=== PATIENT | female | born 1990 | race Caucasian/White ===

== ENCOUNTER → 2017-03-01 | Outpatient (CLI) | payer OTHER ==
[2017-03-01 06:23] LABS: THYROID STIMULATING HORMONE 2.54 UIU/ML (0.35-4.94)
== END ==
LOC: LAB 05:22
PROVIDERS: ATTEND Surgery
DX: E04.1 Nontoxic single thyroid nodule (principal)
CPT/HCPCS: 36415; 84439; 84443; 84480

== ENCOUNTER → 2017-03-14 | Outpatient (CLI) | payer OTHER ==
[~2017-03-14] VITALS: Ht 165.1 cm; Wt 102.1 kg
[~2017-03-14] MED LIST: LIDOCAINE 1% INJ 20 ML (XYLOCAINE) VIAL INJ ONE
[2017-03-14 14:10] VITALS: BP 138/90
[2017-03-14 14:45] VITALS: BP 128/71
--- NOTE | 2017-03-14 17:26 | Diagnostic Imaging Report ---
EXAMINATION: US-guided thyroid aspiration. INDICATION: Predominantly cystic left thyroid lesions. Current history and physical and other medical records are reviewed prior to the procedure. CONSENT: Informed consent was obtained from the patient. The risks, benefits, potential complications and alternatives were reviewed and all questions answered to the patient's satisfaction. The patient's vital signs, cardiac rhythm, and pulse oximetry with observed throughout the procedure by qualified nursing personnel. Sedation/medications: none. FINDINGS: Left thyroid predominantly cystic lesions. PROCEDURE: After maximal sterile barrier technique preparation and draping, 1% lidocaine was utilized for local anesthesia. With the patient in supine position, and via anterior approach, a 19-gauge guide needle is introduced into the mid left thyroid cystic lesion under live ultrasound guidance. After confirming adequate positioning with saved ultrasound images, aspiration was performed and 1 cc specimen of fluid sent to cytology evaluation. Subsequently, the needle was repositioned into the upper left thyroid predominantly cystic nodule and aspiration was performed. 0.5 cc of fluid was obtained and sent for cytology evaluation. The patient tolerated the procedure well with no immediate complications. IMPRESSION: Successful US-guided aspiration of 2 left thyroid lobe predominantly cystic lesions in the mid and upper left thyroid lobe. Dictated by: Dictated on workstation # [id number]
== END ==
LOC: EDUNIT# 13:00 → RAD 13:00
PROVIDERS: ATTEND Surgery
DX: E04.1 Nontoxic single thyroid nodule (principal)
CPT/HCPCS: 76942; 88112; 88305

== ENCOUNTER → 2018-04-04 | Outpatient (CLI) | payer OTHER ==
[2018-04-04 05:11] LABS: HEMOGLOBIN 13.8 G/DL (11.5-16.0); MEAN PLATELET VOLUME 9.7 FL (7.4-10.4); RED BLOOD COUNT 4.45 10^6/uL (4.35-5.85); RED CELL DISTRIBUTION WIDTH 12.2 % (10.0-14.5); WHITE BLOOD COUNT 10.2 10^3/uL (4.3-11.0)
== END ==
LOC: LAB 04:38
PROVIDERS: ATTEND Surgery
DX: E04.1 Nontoxic single thyroid nodule (principal); R53.83 Other fatigue
CPT/HCPCS: 36415; 84436; 84443; 85027

== ENCOUNTER 2018-04-15 14:15 | Outpatient (CLI) | payer OTHER ==
[~2018-04-15] VITALS: Ht 162.6 cm; Wt 88.5 kg
[2018-04-15] MEDS ORDERED: OMEP20CA12 PO (14:41)
[2018-04-15] MEDS ORDERED: NORG1TAB33 PO (14:41)
[2018-04-15] MEDS ORDERED: PREG50CA2 PO (14:41)
[2018-04-15] MEDS ORDERED: calcium PO (14:41)
[2018-04-15] MEDS ORDERED: CHOL200059 PO (14:41)
== END 2018-04-15 14:45 | disposition home or self-care (01) ==
LOC: PREOP 14:15
PROVIDERS: ATTEND Surgery
DX: Z01.818 Encounter for other preprocedural examination (principal)

== ENCOUNTER 2018-04-19 08:56 | Day surgery (SDC) | payer OTHER ==
[~2018-04-19] VITALS: Ht 162.6 cm; Wt 88.5 kg
[~2018-04-19 08:56] MED LIST changes: +CHOL200059 PO; -LIDOCAINE 1% INJ 20 ML (XYLOCAINE) VIAL INJ ONE; +NORG1TAB33 PO; +OMEP20CA12 PO; +PREG50CA2 PO; +calcium PO
[2018-04-19 09:00] VITALS: BP 134/80
--- OUTSIDE RECORDS SUMMARY | 2018-04-19 09:01 | XMS REPORT | CCD ---
Author Author [facility] Address [address] [place] [address] Phone Care Team Providers Care Air Surveillance Operator Name Role Phone PP Unavailable CCM Unavailable Summary Purpose Interface Exchange Insurance Providers Payer name Policy type / Coverage type Covered libertarian ID Effective Begin Date Effective End Date Blue Cross Blue [facility] Blue Cross/Blue Shield [id number] Unknown Unknown Family history Grandmother Diagnosis Age At Onset Cancer Unknown Father Diagnosis Age At Onset Diabetes mellitus Type 2 Unknown Great-Grandmother Diagnosis Age At Onset Breast cancer Unknown Mother Diagnosis Age At Onset Depression Unknown Social History Social History Element Codes Description Effective Dates Marital status Unknown 09/12/2016 Number of adults in household Unknown 2 09/12/2016 Education level Unknown College Graduate 09/12/2016 Employment Unknown Currently employed RT at [employer] 09/12/[address]: 931472511 Never smoker 09/12/[address]: 403161 Currently drinks alcohol 1 drink a week 09/12/2016 Frequency of drinks SNOMED CT: 376942374 1-4 drinks per week 09/12/2016 Has the patient ever used illegal drugs? Unknown Has never used illegal drugs 09/12/2016 Allergies, Adverse Reactions, Alerts Substance Reaction Codes Entered Date Inactivated Date Status amoxicillin emesis RxNorm: 723 09/12/2016 No Inactive Date Active SULFA (SULFONAMIDE ANTIBIOTICS) Unknown 09/12/2016 No Inactive Date Active SULFA (SULFONAMIDES) Unknown 09/12/2016 No Inactive Date Active Past Medical History Illness Codes Condition Status Onset Date Resolved Date Other obesity due to excess calories ICD-9: 278.00 ICD-10: E66.09 Active 09/12/2016 Unknown Other specified disorders of thyroid ICD-9: 246.8 ICD-10: E07.89 Active 02/21/2017 Unknown Encounter for surveillance of contraceptive pills ICD-9: V25.41 ICD-10: Z30.41 Active 05/17/2017 Unknown Gastro-esophageal reflux disease without esophagitis ICD-9: 530.81 ICD-10: K21.9 Active 05/17/2017 Unknown Other dorsalgia ICD-9 : 724.5 ICD-10: M54.89 Active 11/21/2016 Unknown Abnormal findings on diagnostic imaging of other specified body structures ICD-9: 794.5 ICD-10: R93.8 Active 02/21/2017 Unknown Acute laryngopharyngitis ICD-9: 465.0 ICD-10: J06.0 Active 09/12/2016 Unknown Hirsutism ICD-9: 704.1 ICD-10: L68.0 Active 09/12/2016 Unknown Irregular menstruation, unspecified ICD-9: 626.2 ICD-10: N92.6 Active 09/12/2016 Unknown Problems Condition Codes Effective Dates Condition Status Other obesity due to excess calories ICD-9: 278.00 ICD-10: E66.09 09/12/2016 Active Other specified disorders of thyroid ICD-9: 246.8 ICD-10: E07.89 02/21/2017 Active Encounter for surveillance of contraceptive pills ICD-9: V25.41 ICD-10: Z30.41 05/17/2017 Active Gastro-esophageal reflux disease without esophagitis ICD-9: 530.81 ICD-10: K21.9 05/17/2017 Active Other dorsalgia ICD-9 : 724.5 ICD-10: M54.89 11/21/2016 Active Abnormal findings on diagnostic imaging of other specified body structures ICD-9: 794.5 ICD-10: R93.8 02/21/2017 Active Acute laryngopharyngitis ICD-9: 465.0 ICD-10: J06.0 09/12/2016 Active Hirsutism ICD-9: 704.1 ICD-10: L68.0 09/12/2016 Active Irregular menstruation, unspecified ICD-9: 626.2 ICD-10: N92.6 09/12/2016 Active Medications Medication Codes Instructions Start Date Stop Date Status Fill Instructions Lyrica 50 mg capsule RxNorm: 279672 1 Capsule(s) PO daily 02/1405/14/2018 Active omeprazole 20 mg capsule,delayed release RxNorm: 062698 1 CAPSULE(S) PO DAILY 01/28/2018 05/27/2018 Active phentermine 37.5 mg tablet RxNorm: 250397 1 Tablet(s) PO daily 01/15/2018 02/13/2018 Inactive Lyrica 50 mg capsule RxNorm: 533545 1 Capsule(s) PO daily 11/0101/28/2018 Inactive phentermine 37.5 mg tablet RxNorm: 759071 1 Tablet(s) PO daily 11/01/2017 11/30/2017 Inactive Lo Loestrin Fe 1 mg-10 mcg (24)/10 mcg (2) tablet RxNorm: 6514777 1 TABLET(S) PO UD 10/01/2017 No Stop Date Active phentermine 37.5 mg tablet RxNorm: 474069 1 Tablet(s) PO daily 09/25/2017 10/23/2017 Inactive Lo Loestrin Fe 1 mg-10 mcg (24)/10 mcg (2) tablet RxNorm: 4413056 1 TABLET(S) PO UD 08/27/2017 09/30/2017 Inactive phentermine 37.5 mg tablet RxNorm: 267591 1 Tablet(s) PO daily 07/26/2017 08/23/2017 Inactive Lo Loestrin Fe 1 mg-10 mcg (24)/10 mcg (2) tablet RxNorm: 7903879 1 Tablet(s) PO UD 06/14/2017 03/10/2018 Active omeprazole 20 mg capsule,delayed release RxNorm: 635280 1 Capsule(s) PO daily 06/14/2017 03/10/2018 Active phentermine 37.5 mg tablet RxNorm: 233414 1 Tablet(s) PO daily 06/14/2017 07/13/2017 Inactive Lyrica 50 mg capsule RxNorm: 577899 1 Capsule(s) PO daily 06/1410/31/2017 Inactive Lo Loestrin Fe 1 mg-10 mcg (24)/10 mcg (2) tablet RxNorm: 5777512 1 Tablet(s) PO UD 05/17/2017 06/13/2017 Inactive phentermine 37.5 mg tablet RxNorm: 503025 1 Tablet(s) PO daily 05/17/2017 06/13/2017 Inactive Lyrica 50 mg capsule RxNorm: 844815 1 Capsule(s) PO daily 05/1706/13/2017 Inactive omeprazole 20 mg capsule,delayed release RxNorm: 979983 1 Capsule(s) PO daily 05/17/2017 06/13/2017 Inactive Contrave 8 mg-90 mg tablet,extended release RxNorm: 3677053 1 Tablet(s) PO QD x 1 week, then BID x 1 week, then 2 pills QAM & 1 pill QPM x 1 week, then 2 pills BID 10/24/2016 05/27/2017 Inactive Lutera (28) 0.1 mg-20 mcg tablet RxNorm: 787669 1 Tablet(s) PO daily 09/12/2016 10/09/2016 Inactive Zithromax Z-Brennan 250 mg tablet RxNorm: 623590 1 Tablet(s) PO daily 09/12/2016 09/16/2016 Inactive zpack Medication Administered No Medication Administered data Immunizations No Immunization data Assessments Condition Codes Effective Dates Other specified disorders of thyroid ICD-10: E07.89 ICD-9: 246.8 01/15/2018 Other obesity due to excess calories ICD-10: E66.09 ICD-9: 278.00 01/15/2018 Gastro-esophageal reflux disease without esophagitis ICD-10 : K21.9 ICD-9: 530.81 06/14/2017 Encounter for surveillance of contraceptive pills ICD-10: Z30.41 ICD-9: V25.41 06/14/2017 Other dorsalgia ICD-10: M54.89 ICD-9: 724.5 05/17/2017 Abnormal findings on diagnostic imaging of other specified body structures ICD-10: R93.8 ICD-9: 794.5 02/21/2017 Irregular menstruation, unspecified ICD-10: N92.6 ICD-9: 626.2 09/12/2016 Acute laryngopharyngitis ICD-10: J06.0 ICD-9: 465.0 09/12/2016 Hirsutism ICD-10: L68.0 ICD-9: 704.1 09/12/2016 Reason For Visit Reason For Visit Effective Dates Notes weight gain/obesity 01/15/2018 weight gain/obesity 11/15/2017 weight gain/obesity 06/14/2017 medication follow up 05/17/2017 thyroid nodule 02/21/2017 medication follow up 11/21/2016 weight gain/obesity 10/24/2016 weight gain/obesity 09/12/2016 Results Observation Observation Code Item Item Code Result Date Prolactin 829216 PROLACTIN 17.0 ng/mL 09/20/2016 Lipid Ord30 CHOL 198 mg/dL 09/20/2016 Lipid Ord30 HDL 41.0 mg/dl 09/20/2016 Lipid Ord30 TRIG 96 mg/dL 09/20/2016 Lipid Ord30 LDL 138 mg/dL 09/20/2016 Lipid Ord30 C/HDL 4.8 Ratio 09/20/2016 Comp Metabolic Ydp486 NA 137 mEq/L 09/20/2016 Comp Metabolic Mhu560 K 4.4 mEq/L 09/20/2016 Comp Metabolic Nbo806 CL 104 mEq/L 09/20/2016 Comp Metabolic Xry269 CO2 23.0 mEq/L 09/20/2016 Comp Metabolic Tja658 ANION GAP 14 09/20/2016 Comp Metabolic Mew392 GLUCOSE 89 mg/dL 09/20/2016 Comp Metabolic Zyv291 Creat 0.8 mg/dL 09/20/2016 Comp Metabolic Xqj021 eGFR 89 ml/min/1.73m2 09/20/2016 Comp Metabolic Txa610 BUN 14 mg/dL 09/20/2016 Comp Metabolic Hpy661 B/C Ratio 17.1 Ratio 09/20/2016 Comp Metabolic Nxu090 CALCIUM 9.4 mg/dL 09/20/2016 Comp Metabolic Cow487 ALK PHOS 47 U/L 09/20/2016 Comp Metabolic Snd575 AST(SGOT) 18 U/L 09/20/2016 Comp Metabolic Ugb429 ALT(SGPT) 21 U/L 09/20/2016 Comp Metabolic Jow955 BILI T 0.5 mg/dL 09/20/2016 Comp Metabolic Sgz333 ALBUMIN 4.2 g/dL 09/20/2016 Comp Metabolic Jnw668 TPRO 7.0 g/dL 09/20/2016 Comp Metabolic Wrd159 GLOB 2.8 g/dL 09/20/2016 Comp Metabolic Ckg284 A/G Ratio 1.5 Ratio 09/20/2016 Comp Metabolic Cap626 Osmo 274 mOsmo 09/20/2016 Fsh Ord18 FSH 5.67 mlU/ml 09/20/2016 Lh Ord19 LH 7.49 mIU/mL 09/20/2016 Progesterone Fjf941 Prog 0.73 ng/mL 09/19/2016 Cbc With Differential Ord2 WBC 6.17 K/ul 09/19/2016 Cbc With Differential Ord2 RBC 4.84 M/ul 09/19/2016 Cbc With Differential Ord2 HGB 15.1 g/dl 09/19/2016 Cbc With Differential Ord2 HCT 44.3 % 09/19/2016 Cbc With Differential Ord2 Neut% 43.8 % 09/19/2016 Cbc With Differential Ord2 Lymph% 45.4 % 09/19/2016 Cbc With Differential Ord2 MCV 91.5 fl 09/19/2016 Cbc With Differential Ord2 [place]% 9.4 % 09/19/2016 Cbc With Differential Ord2 MCH 31.2 pg 09/19/2016 Cbc With Differential Ord2 Eos% 1.1 % 09/19/2016 Cbc With Differential Ord2 MCHC 34.1 pg 09/19/2016 Cbc With Differential Ord2 Baso% 0.3 % 09/19/2016 Cbc With Differential Ord2 PLT 333 K/ul 09/19/2016 Cbc With Differential Ord2 RDW 12.6 % 09/19/2016 Cbc With Differential Ord2 Neut ABS# 2.70 K/ul 09/19/2016 Cbc With Differential Ord2 Lymph ABS# 2.80 K/ul 09/19/2016 Cbc With Differential Ord2 [place] ABS# 0.6 K/ul 09/19/2016 Cbc With Differential Ord2 Eos ABS# 0.1 K/ul 09/19/2016 Cbc With Differential Ord2 Baso ABS# 0.0 K/ul 09/19/2016 Tsh Ord6 hTSH II 0.92 uIU/mL 09/19/2016 Review of Systems System Result Effective Dates Constitutional No recent illness 2017 Constitutional No chills 01/15/2018 Constitutional No diaphoresis 01/15/2018 Constitutional No fever 01/15/2018 Eyes No eye erythema 01/15/2018 Ears/Nose/Throat/Neck No nasal allergies 01/15/2018 Ears/Nose/Throat/Neck No nasal discharge 01/15/2018 Cardiovascular No chest pain/pressure Cardiovascular No dyspnea 01/15/2018 Respiratory No chest congestion 2017 Respiratory No cough 01/15/2018 Gastrointestinal No abdominal pain 2017 Gastrointestinal No constipation 2017 Gastrointestinal No diarrhea 01/15/2018 Gastrointestinal No gastroesophageal reflux 01/15/2018 Gastrointestinal No nausea 01/15/2018 Gastrointestinal No vomiting 01/15/2018 Musculoskeletal back pain 01/15/2018 Dermatologic No rash 01/15/2018 Neurologic No alteration of consciousness 01/15/2018 Neurologic No mental status change 2017 Constitutional No recent illness 2017 Constitutional No chills 11/15/2017 Constitutional No diaphoresis 11/15/2017 Constitutional No fever 11/15/2017 Eyes No eye erythema 11/15/2017 Ears/Nose/Throat/Neck No nasal allergies 11/15/2017 Ears/Nose/Throat/Neck No nasal discharge 11/15/2017 Cardiovascular No chest pain/pressure Cardiovascular No dyspnea 11/15/2017 Respiratory No chest congestion 2017 Respiratory No cough 11/15/2017 Gastrointestinal No abdominal pain 2017 Gastrointestinal No constipation 2017 Gastrointestinal No diarrhea 11/15/2017 Gastrointestinal No gastroesophageal reflux 11/15/2017 Gastrointestinal No nausea 11/15/2017 Gastrointestinal No vomiting 11/15/2017 Musculoskeletal back pain 11/15/2017 Dermatologic No rash 11/15/2017 Neurologic No alteration of consciousness 11/15/2017 Neurologic No mental status change 2017 Constitutional No recent illness 2016 Constitutional No chills 06/14/2017 Constitutional No diaphoresis 06/14/2017 Constitutional No fever 06/14/2017 Eyes No eye erythema 06/14/2017 Ears/Nose/Throat/Neck No nasal discharge 06/14/2017 Ears/Nose/Throat/Neck No nasal allergies 06/14/2017 Cardiovascular No chest pain/pressure Cardiovascular No dyspnea 06/14/2017 Respiratory No cough 06/14/2017 Respiratory No chest congestion 2016 Gastrointestinal No abdominal pain 2016 Gastrointestinal No constipation 2016 Gastrointestinal No diarrhea 06/14/2017 Gastrointestinal No gastroesophageal reflux 06/14/2017 Gastrointestinal No nausea 06/14/2017 Gastrointestinal No vomiting 06/14/2017 Musculoskeletal back pain 06/14/2017 Dermatologic No rash 06/14/2017 Neurologic No alteration of consciousness 06/14/2017 Neurologic No mental status change 2016 Constitutional No recent illness 2016 Constitutional obesity 05/17/2017 Constitutional weight gain 05/17/2017 Constitutional No chills 05/17/2017 Constitutional No diaphoresis 05/17/2017 Constitutional No fever 05/17/2017 Eyes No eye erythema 05/17/2017 Eyes No eye discharge 05/17/2017 Eyes No eye erythema 05/17/2017 Ears/Nose/Throat/Neck No nasal allergies 05/17/2017 Ears/Nose/Throat/Neck No nasal discharge 05/17/2017 Cardiovascular No chest pain/pressure Respiratory No cough 05/17/2017 Respiratory No dyspnea 05/17/2017 Gastrointestinal No abdominal pain 2016 Musculoskeletal back pain 05/17/2017 Dermatologic No rash 05/17/2017 Neurologic No alteration of consciousness 05/17/2017 Neurologic No mental status change 2016 Constitutional No recent illness 2016 Constitutional No chills 02/21/2017 Constitutional No diaphoresis 02/21/2017 Constitutional No fever 02/21/2017 Eyes No eye erythema 02/21/2017 Ears/Nose/Throat/Neck No nasal discharge 02/21/2017 Ears/Nose/Throat/Neck No dysphagia 2016 Cardiovascular No chest pain/pressure Cardiovascular No dyspnea 02/21/2017 Respiratory No cough 02/21/2017 Musculoskeletal neck pain 02/21/2017 Neurologic No alteration of consciousness 02/21/2017 Neurologic No mental status change 2016 Endocrine thyroid nodule 02/21/2017 Constitutional No recent illness 2016 Constitutional obesity 11/21/2016 Constitutional No chills 11/21/2016 Constitutional No diaphoresis 11/21/2016 Constitutional No fever 11/21/2016 Eyes No eye erythema 11/21/2016 Ears/Nose/Throat/Neck No nasal allergies 11/21/2016 Ears/Nose/Throat/Neck No nasal discharge 11/21/2016 Cardiovascular No chest pain/pressure Respiratory No cough 11/21/2016 Respiratory No dyspnea 11/21/2016 Musculoskeletal back pain 11/21/2016 Neurologic No alteration of consciousness 11/21/2016 Neurologic No mental status change 2016 Constitutional weight gain 11/21/2016 Eyes No eye discharge 11/21/2016 Eyes No eye erythema 11/21/2016 Gastrointestinal No abdominal pain 2016 Dermatologic No rash 11/21/2016 Constitutional No recent illness 2016 Constitutional No chills 10/24/2016 Constitutional No diaphoresis 10/24/2016 Constitutional No fever 10/24/2016 Eyes No eye discharge 10/24/2016 Eyes No eye erythema 10/24/2016 Cardiovascular No chest pain/pressure Cardiovascular No dyspnea 10/24/2016 Respiratory No cough 10/24/2016 Gastrointestinal No abdominal pain 2016 Musculoskeletal back pain 10/24/2016 Dermatologic No rash 10/24/2016 Neurologic No alteration of consciousness 10/24/2016 Constitutional weight gain 10/24/2016 Constitutional obesity 10/24/2016 Ears/Nose/Throat/Neck No nasal discharge 10/24/2016 Ears/Nose/Throat/Neck No nasal allergies 10/24/2016 Respiratory No dyspnea 10/24/2016 Neurologic No mental status change 2016 Constitutional No recent illness 2016 Constitutional No anorexia 09/12/2016 Constitutional No night sweats 2016 Constitutional No chills 09/12/2016 Constitutional No diaphoresis 09/12/2016 Constitutional No fatigue 09/12/2016 Constitutional No fever 09/12/2016 Constitutional No insomnia 09/12/2016 Constitutional No weight loss 09/12/2016 Constitutional No malaise 09/12/2016 Constitutional weight gain 09/12/2016 Eyes No eye erythema 09/12/2016 Eyes No eye discharge 09/12/2016 Ears/Nose/Throat/Neck No dizziness 2016 Ears/Nose/Throat/Neck headache 2016 Cardiovascular No chest pain/pressure Cardiovascular No dyspnea 09/12/2016 Cardiovascular No edema 09/12/2016 Respiratory No cough 09/12/2016 Gastrointestinal No abdominal pain 2016 Gastrointestinal No constipation 2016 Gastrointestinal diarrhea 09/12/2016 Genitourinary/Nephrology No dysuria 09/12 Musculoskeletal No joint complaint 2016 Dermatologic No rash 09/12/2016 Neurologic No alteration of consciousness 09/12/2016 Psychiatric No anxiety 09/12/2016 Psychiatric No depression 09/12/2016 Endocrine No dry or coarse skin 2016 Hematologic/Lymphatic No anemia 2016 Musculoskeletal back pain 09/12/2016 Physical Exam Exam Name System Name Item Name Status Result Effective Dates Notes Full Exam - General 1994 Constitutional general appearance Overall: well developed 01/15/2018 None Full Exam - General 1994 Constitutional general appearance Overall: in no acute distress 01/15/2018 None Full Exam - General 1994 Constitutional general appearance Overall: well nourished 01/15/2018 None Full Exam - General 1994 Eyes conjunctiva /eyelids Overall: conjunctiva clear 01/15/2018 None Full Exam - General 1994 Eyes conjunctiva /eyelids Overall: cornea clear 01/15/2018 None Full Exam - General 1994 Eyes conjunctiva /eyelids Overall: eyelids normal 01/15/2018 None Full Exam - General 1995 Ears/Nose/Throat lips/teeth/gingiva Overall: benign lips 01/15/2018 None Full Exam - General 1994 Ears/Nose/Throat oral cavity/pharynx/larynx Overall: oral mucosa clear 01/15/2018 None Full Exam - General 1994 Respiratory auscultation Overall: breath sounds clear bilaterally 01/15/2018 None Full Exam - General 1994 Respiratory respiratory effort/rhythm Overall: no retractions 01/15/2018 None Full Exam - General 1994 Respiratory respiratory effort/rhythm Overall: normal rate 01/15/2018 None Full Exam - General 1994 Cardiovascular auscultation of heart Overall: regular rate 01/15/2018 None Full Exam - General 1994 Cardiovascular auscultation of heart Overall: normal heart sounds 01/15/2018 None Full Exam - General 1994 Musculoskeletal head and neck Overall: head atraumatic 01/15/2018 None Full Exam - General 1994 Neurologic cranial nerves Overall: crainial nerves 2 - 12 grossly intact 01/15/2018 None Full Exam - General 1994 Psychiatric orientation/consciousness Overall: oriented to person, place and time 01/15/2018 None Full Exam - General 1994 Psychiatric mood and affect Overall: normal mood and affect 01/15/2018 None Full Exam - General 1994 Psychiatric appearance Overall: well-groomed, good eye contact 01/15/2018 None Full Exam - General 1994 Neck thyroid Palpation: tender 2017 None Full Exam - General 1994 Constitutional general appearance Overall: well developed 11/15/2017 None Full Exam - General 1994 Constitutional general appearance Overall: in no acute distress 11/15/2017 None Full Exam - General 1994 Constitutional general appearance Overall: well nourished 11/15/2017 None Full Exam - General 1994 Eyes conjunctiva /eyelids Overall: conjunctiva clear 11/15/2017 None Full Exam - General 1994 Eyes conjunctiva /eyelids Overall: cornea clear 11/15/2017 None Full Exam - General 1994 Eyes conjunctiva /eyelids Overall: eyelids normal 11/15/2017 None Full Exam - General 1994 Ears/Nose/Throat lips/teeth/gingiva Overall: benign lips 11/15/2017 None Full Exam - General 1994 Ears/Nose/Throat oral cavity/pharynx/larynx Overall: oral mucosa clear 11/15/2017 None Full Exam - General 1994 Respiratory auscultation Overall: breath sounds clear bilaterally 11/15/2017 None Full Exam - General 1994 Respiratory respiratory effort/rhythm Overall: no retractions 11/15/2017 None Full Exam - General 1994 Respiratory respiratory effort/rhythm Overall: normal rate 11/15/2017 None Full Exam - General 1994 Cardiovascular auscultation of heart Overall: regular rate 11/15/2017 None Full Exam - General 1994 Cardiovascular auscultation of heart Overall: normal heart sounds 11/15/2017 None Full Exam - General 1994 Musculoskeletal head and neck Overall: head atraumatic 11/15/2017 None Full Exam - General 1994 Neurologic cranial nerves Overall: crainial nerves 2 - 12 grossly intact 11/15/2017 None Full Exam - General 1994 Psychiatric orientation/consciousness Overall: oriented to person, place and time 11/15/2017 None Full Exam - General 1994 Psychiatric mood and affect Overall: normal mood and affect 11/15/2017 None Full Exam - General 1994 Psychiatric appearance Overall: well-groomed, good eye contact 11/15/2017 None Full Exam - General 1994 Constitutional general appearance Overall: well developed 06/14/2017 None Full Exam - General 1994 Constitutional general appearance Overall: in no acute distress 06/14/2017 None Full Exam - General 1994 Constitutional general appearance Overall: well nourished 06/14/2017 None Full Exam - General 1994 Eyes conjunctiva /eyelids Overall: conjunctiva clear 06/14/2017 None Full Exam - General 1994 Eyes conjunctiva /eyelids Overall: cornea clear 06/14/2017 None Full Exam - General 1994 Eyes conjunctiva /eyelids Overall: eyelids normal 06/14/2017 None Full Exam - General 1994 Ears/Nose/Throat lips/teeth/gingiva Overall: benign lips 06/14/2017 None Full Exam - General 1994 Ears/Nose/Throat oral cavity/pharynx/larynx Overall: oral mucosa clear 06/14/2017 None Full Exam - General 1994 Respiratory auscultation Overall: breath sounds clear bilaterally 06/14/2017 None Full Exam - General 1994 Respiratory respiratory effort/rhythm Overall: normal rate 06/14/2017 None Full Exam - General 1994 Respiratory respiratory effort/rhythm Overall: no retractions 06/14/2017 None Full Exam - General 1994 Cardiovascular auscultation of heart Overall: normal heart sounds 06/14/2017 None Full Exam - General 1994 Cardiovascular auscultation of heart Overall: regular rate 06/14/2017 None Full Exam - General 1994 Musculoskeletal head and neck Overall: head atraumatic 06/14/2017 None Full Exam - General 1994 Neurologic cranial nerves Overall: crainial nerves 2 - 12 grossly intact 06/14/2017 None Full Exam - General 1994 Psychiatric orientation/consciousness Overall: oriented to person, place and time 06/14/2017 None Full Exam - General 1994 Psychiatric mood and affect Overall: normal mood and affect 06/14/2017 None Full Exam - General 1994 Psychiatric appearance Overall: well-groomed, good eye contact 06/14/2017 None Full Exam - General 1994 Constitutional general appearance Overall: well developed 05/17/2017 None Full Exam - General 1994 Constitutional general appearance Overall: in no acute distress 05/17/2017 None Full Exam - General 1994 Constitutional general appearance Overall: well nourished 05/17/2017 None Full Exam - General 1994 Eyes conjunctiva /eyelids Overall: conjunctiva clear 05/17/2017 None Full Exam - General 1994 Eyes conjunctiva /eyelids Overall: eyelids normal 05/17/2017 None Full Exam - General 1994 Ears/Nose/Throat lips/teeth/gingiva Overall: benign lips 05/17/2017 None Full Exam - General 1994 Ears/Nose/Throat oral cavity/pharynx/larynx Overall: oral mucosa clear 05/17/2017 None Full Exam - General 1994 Respiratory auscultation Overall: breath sounds clear bilaterally 05/17/2017 None Full Exam - General 1994 Respiratory respiratory effort/rhythm Overall: no retractions 05/17/2017 None Full Exam - General 1994 Respiratory respiratory effort/rhythm Overall: normal rate 05/17/2017 None Full Exam - General 1994 Cardiovascular auscultation of heart Overall: regular rate 05/17/2017 None Full Exam - General 1994 Cardiovascular auscultation of heart Overall: normal heart sounds 05/17/2017 None Full Exam - General 1994 Musculoskeletal spine, ribs and pelvis Spine: tender @ thoracic spine 05/17/2017 None Full Exam - General 1994 Musculoskeletal gait and station Overall: normal gait 05/17/2017 None Full Exam - General 1994 Musculoskeletal gait and station Overall: normal station 05/17/2017 None Full Exam - General 1994 Musculoskeletal head and neck Overall: head atraumatic 05/17/2017 None Full Exam - General 1994 Neurologic cranial nerves Overall: crainial nerves 2 - 12 grossly intact 05/17/2017 None Full Exam - General 1994 Psychiatric orientation/consciousness Overall: oriented to person, place and time 05/17/2017 None Full Exam - General 1994 Psychiatric mood and affect Overall: normal mood and affect 05/17/2017 None Full Exam - General 1994 Psychiatric appearance Overall: well-groomed, good eye contact 05/17/2017 None Full Exam - General 1994 Eyes conjunctiva /eyelids Overall: cornea clear 05/17/2017 None Full Exam - General 1994 Constitutional general appearance Nourishment: obese 05/17/2017 None Full Exam - ENT Constitutional general appearance Overall: well nourished 02/21/2017 None Full Exam - ENT Constitutional general appearance Overall: well developed 02/21/2017 None Full Exam - ENT Constitutional general appearance Overall: in no acute distress 02/21/2017 None Full Exam - ENT Ears/Nose/Throat lips/ teeth/gingiva Overall: benign lips 02/21/2017 None Full Exam - ENT Ears/Nose/Throat oropharynx Overall: oral mucosa clear 02/21/2017 None Full Exam - ENT Neck inspection of neck Overall: normal appearance 02/21/2017 None Full Exam - ENT Neck inspection of thyroid Palpation: tender 02/21/2017 None Full Exam - ENT Respiratory inspection Overall: normal rate None Full Exam - ENT Respiratory inspection Overall: no retractions 02/21/2017 None Full Exam - ENT Musculoskeletal head and neck Overall: head atraumatic 02/21/2017 None Full Exam - ENT Musculoskeletal gait and station Overall: normal gait 02/21/2017 None Full Exam - ENT Musculoskeletal gait and station Overall: normal station 02/21/2017 None Full Exam - ENT Neurologic mood and affect Overall: normal affect 02/21/2017 None Full Exam - ENT Neurologic mood and affect Overall: normal mood 02/21/2017 None Full Exam - ENT Neurologic orientation Overall: oriented to person, place and time 02/21/2017 None Full Exam - General 1994 Constitutional general appearance Overall: well developed 11/21/2016 None Full Exam - General 1994 Constitutional general appearance Overall: in no acute distress 11/21/2016 None Full Exam - General 1994 Constitutional general appearance Overall: well nourished 11/21/2016 None Full Exam - General 1994 Eyes conjunctiva /eyelids Overall: conjunctiva clear 11/21/2016 None Full Exam - General 1994 Eyes conjunctiva /eyelids Overall: eyelids normal 11/21/2016 None Full Exam - General 1994 Ears/Nose/Throat lips/teeth/gingiva Overall: benign lips 11/21/2016 None Full Exam - General 1994 Ears/Nose/Throat oral cavity/pharynx/larynx Overall: oral mucosa clear 11/21/2016 None Full Exam - General 1994 Respiratory auscultation Overall: breath sounds clear bilaterally 11/21/2016 None Full Exam - General 1994 Respiratory respiratory effort/rhythm Overall: no retractions 11/21/2016 None Full Exam - General 1994 Respiratory respiratory effort/rhythm Overall: normal rate 11/21/2016 None Full Exam - General 1994 Cardiovascular auscultation of heart Overall: regular rate 11/21/2016 None Full Exam - General 1994 Cardiovascular auscultation of heart Overall: normal heart sounds 11/21/2016 None Full Exam - General 1994 Musculoskeletal gait and station Overall: normal gait 11/21/2016 None Full Exam - General 1994 Musculoskeletal gait and station Overall: normal station 11/21/2016 None Full Exam - General 1994 Neurologic cranial nerves Overall: crainial nerves 2 - 12 grossly intact 11/21/2016 None Full Exam - General 1994 Psychiatric orientation/consciousness Overall: oriented to person, place and time 11/21/2016 None Full Exam - General 1994 Psychiatric mood and affect Overall: normal mood and affect 11/21/2016 None Full Exam - General 1994 Psychiatric appearance Overall: well-groomed, good eye contact 11/21/2016 None Full Exam - General 1994 Musculoskeletal spine, ribs and pelvis Spine: tender @ thoracic spine 11/21/2016 None Full Exam - General 1994 Musculoskeletal head and neck Overall: head atraumatic 11/21/2016 None Full Exam - General 1994 Constitutional general appearance Overall: well developed 10/24/2016 None Full Exam - General 1994 Constitutional general appearance Overall: in no acute distress 10/24/2016 None Full Exam - General 1994 Constitutional general appearance Overall: well nourished 10/24/2016 None Full Exam - General 1994 Eyes conjunctiva /eyelids Overall: conjunctiva clear 10/24/2016 None Full Exam - General 1994 Ears/Nose/Throat oral cavity/pharynx/larynx Overall: oral mucosa clear 10/24/2016 None Full Exam - General 1994 Respiratory auscultation Overall: breath sounds clear bilaterally 10/24/2016 None Full Exam - General 1994 Respiratory respiratory effort/rhythm Overall: no retractions 10/24/2016 None Full Exam - General 1994 Respiratory respiratory effort/rhythm Overall: normal rate 10/24/2016 None Full Exam - General 1994 Cardiovascular auscultation of heart Overall: regular rate 10/24/2016 None Full Exam - General 1994 Cardiovascular auscultation of heart Overall: normal heart sounds 10/24/2016 None Full Exam - General 1994 Musculoskeletal gait and station Overall: normal gait 10/24/2016 None Full Exam - General 1994 Musculoskeletal gait and station Overall: normal station 10/24/2016 None Full Exam - General 1994 Neurologic cranial nerves Overall: crainial nerves 2 - 12 grossly intact 10/24/2016 None Full Exam - General 1994 Psychiatric orientation/consciousness Overall: oriented to person, place and time 10/24/2016 None Full Exam - General 1994 Eyes conjunctiva /eyelids Overall: eyelids normal 10/24/2016 None Full Exam - General 1994 Ears/Nose/Throat lips/teeth/gingiva Overall: benign lips 10/24/2016 None Full Exam - General 1994 Psychiatric mood and affect Overall: normal mood and affect 10/24/2016 None Full Exam - General 1994 Psychiatric appearance Overall: well-groomed, good eye contact 10/24/2016 None Full Exam - General 1994 Constitutional general appearance Overall: well developed 09/12/2016 None Full Exam - General 1994 Constitutional general appearance Overall: in no acute distress 09/12/2016 None Full Exam - General 1994 Constitutional general appearance Overall: well nourished 09/12/2016 None Full Exam - General 1994 Psychiatric orientation/consciousness Overall: oriented to person, place and time 09/12/2016 None Full Exam - General 1994 Neurologic cranial nerves Overall: crainial nerves 2 - 12 grossly intact 09/12/2016 None Full Exam - General 1994 Integument inspection of skin Overall: few scattered moles, no gross abnormalities 09/12/2016 None Full Exam - General 1994 Musculoskeletal gait and station Overall: normal gait 09/12/2016 None Full Exam - General 1994 Musculoskeletal gait and station Overall: normal station 09/12/2016 None Full Exam - General 1994 Abdomen abdominal exam Overall: no tenderness 09/12/2016 None Full Exam - General 1994 Abdomen abdominal exam Overall: normal bowel sounds 09/12/2016 None Full Exam - General 1994 Cardiovascular auscultation of heart Overall: regular rate 09/12/2016 None Full Exam - General 1994 Cardiovascular auscultation of heart Overall: normal heart sounds 09/12/2016 None Full Exam - General 1994 Cardiovascular auscultation of heart Overall: no murmurs 09/12/2016 None Full Exam - General 1994 Respiratory auscultation Overall: breath sounds clear bilaterally 09/12/2016 None Full Exam - General 1994 Respiratory respiratory effort/rhythm Overall: normal rate 09/12/2016 None Full Exam - General 1994 Respiratory respiratory effort/rhythm Overall: no retractions 09/12/2016 None Full Exam - General 1994 Ears/Nose/Throat otoscopic exam Overall: tympanic membranes clear 09/12/2016 None Full Exam - General 1994 Ears/Nose/Throat otoscopic exam Overall: external auditory canals clear 09/12/2016 None Full Exam - General 1994 Ears/Nose/Throat oral cavity/pharynx/larynx Overall: oral mucosa clear 09/12/2016 None Full Exam - General 1994 Eyes conjunctiva /eyelids Overall: conjunctiva clear 09/12/2016 None Full Exam - General 1994 Eyes pupils and irises Overall: pupils equal, round, reactive to light and accomodation 09/12/2016 None Full Exam - General 1994 Ears/Nose/Throat oral cavity/pharynx/larynx Posterior Pharynx: clear post nasal drainage 09/12/2016 erythematous Procedures No Procedures data Vital Signs Date Vital 01/15/2018 Blood Pressure 1: 120/76 Code : 8480-6 BMI: 33.3 Code : 24143-1 Heart Rate 1 : 96 bpm Height: 5'4" SpO2: 98% Weight: 194 lbs 11/15/2017 Blood Pressure 1: 126/70 Code : 8480-6 BMI: 33.6 Code : 46030-4 Heart Rate 1 : 93 bpm Height: 5'4" SpO2: 99% Weight: 196 lbs 11/01/2017 Blood Pressure 1: 102/74 Code : 8480-6 BMI: 33.8 Code : 04584-9 Heart Rate 1 : 90 bpm Height: 5'4" SpO2: 98% Weight: 197 lbs 09/25/2017 Blood Pressure 1: 122/72 Code : 8480-6 BMI: 35.0 Code : 59141-1 Heart Rate 1 : 93 bpm Height: 5'4" SpO2: 98% Weight: 204 lbs 07/26/2017 Blood Pressure 1: 116/78 Code : 8480-6 Heart Rate 1: 99 bpm SpO2: 98% Weight: 208 lbs 06/14/2017 Blood Pressure 1: 110/68 Code : 8480-6 Heart Rate 1: 90 bpm SpO2: 97% Weight: 217 lbs 05/17/2017 Blood Pressure 1: 128/72 Code : 8480-6 BMI: 38.4 Code : 85943-2 Heart Rate 1 : 78 bpm Height: 5'4" SpO2: 98% Weight: 224 lbs 02/21/2017 Blood Pressure 1: 126/74 Code : 8480-6 BMI: 38.3 Code : 95031-1 Heart Rate 1 : 99 bpm Height: 5'4" SpO2: 97% Weight: 223 lbs 11/21/2016 Blood Pressure 1: 110/64 Code : 8480-6 BMI: 39.0 Code : 14413-1 Heart Rate 1 : 85 bpm Height: 5'4" SpO2: 98% Weight: 227 lbs 10/24/2016 Blood Pressure 1: 114/72 Code : 8480-6 BMI: 39.1 Code : 41283-1 Heart Rate 1 : 78 bpm Height: 5'4" SpO2: 98% Weight: 228 lbs 09/12/2016 Blood Pressure 1: 132/78 Code : 8480-6 BMI: 39.3 Code : 55214-2 Heart Rate 1 : 90 bpm Height: 5'4" SpO2: 98% Weight: 229 lbs Functional Status No Functional Status data History of Present Illness Symptom Name Status Result Effective Date Notes weight gain/obesity Location globally 01/15/2018 None weight gain/obesity Quality chronic 01/15/2018 None weight gain/obesity Quality improving 01/15/2018 None weight gain/obesity Onset and Resolution ongoing 01/15/2018 None weight gain/obesity Pertinent Findings Denies dyspnea 01/15/2018 None weight gain/obesity Location globally 11/15/2017 None weight gain/obesity Quality chronic 11/15/2017 None weight gain/obesity Quality improving 11/15/2017 None weight gain/obesity Onset and Resolution ongoing 11/15/2017 None weight gain/obesity Pertinent Findings Denies dyspnea 11/15/2017 None weight gain/obesity Location globally 06/14/2017 None weight gain/obesity Quality chronic 06/14/2017 None weight gain/obesity Quality improving 06/14/2017 None weight gain/obesity Onset and Resolution ongoing 06/14/2017 None weight gain/obesity Pertinent Findings Denies dyspnea 06/14/2017 None medication follow up Location oral intake 05/17/2017 None medication follow up Additional Comments medication use 05/17/2017 None weight gain/obesity Location globally 05/17/2017 None weight gain/obesity Quality chronic 05/17/2017 None weight gain/obesity Quality worsening 05/17/2017 None weight gain/obesity Onset and Resolution ongoing 05/17/2017 None weight gain/obesity Pertinent Findings Denies dyspnea 05/17/2017 None thyroid nodule Location on the left 02/21/2017 None thyroid nodule Location on the right 02/21/2017 None thyroid nodule Quality cystic 02/21/2017 None thyroid nodule Pertinent Findings Denies dysphagia 02/21/2017 None thyroid nodule Pertinent Findings Denies change in voice 02/21/2017 None medication follow up Additional Comments medication use 11/21/2016 None medication follow up Location oral intake 11/21/2016 None weight gain/obesity Location globally 10/24/2016 None weight gain/obesity Quality constant 10/24/2016 None weight gain/obesity Onset and Resolution sudden in onset 10/24/2016 None weight gain/obesity Location globally 09/12/2016 None weight gain/obesity Quality chronic 09/12/2016 None weight gain/obesity Quality worsening 09/12/2016 None weight gain/obesity Onset and Resolution ongoing 09/12/2016 None weight gain/obesity Weight Status is morbidly obese 09/12/2016 None weight gain/obesity Triggers sedentary lifestyle 09/12/2016 None weight gain/obesity Triggers unintentional weight gain 09/12/2016 None Advance Directives No Advance Directive data Encounters Encounter Performer Location Codes Date EST. PATIENT, LEVEL IV Diagnosis: Other obesity due to excess calories[ICD10: E66.09] Diagnosis: Other specified disorders of thyroid[ICD10: E07.89] [facility] CPT-4: 11791 01/15/2018 22615 EST. PATIENT, LEVEL IV Diagnosis: Other obesity due to excess calories[ICD10: E66.09] [facility] CPT-4: 51189 11/15/2017 ([id number]) Miscellaneous no charge Diagnosis: Other obesity due to excess calories[ICD10: E66.09] [facility] CPT-4: 10968 11/01/2017 ([id number]) Miscellaneous no charge Diagnosis: Other obesity due to excess calories[ICD10: E66.09] Irma Zepeda MD, [facility] CPT-4: 10241 09/25/2017 ([id number]) Miscellaneous no charge Diagnosis: Other obesity due to excess calories[ICD10: E66.09] Irma Zepeda MD [facility] CPT-4: 93870 07/26/2017 84737 EST. PATIENT, LEVEL IV Diagnosis: Other obesity due to excess calories[ICD10: E66.09] Diagnosis: Encounter for surveillance of contraceptive pills[ICD10: Z30.41] Diagnosis: Gastro-esophageal reflux disease without esophagitis[ICD10: K21.9] Janell Zepeda MD, [facility] CPT-4: 40118 06/14/2017 82058 EST. PATIENT, LEVEL IV Diagnosis: Other obesity due to excess calories[ICD10: E66.09] Diagnosis: Other dorsalgia[ICD10: M54.89] Diagnosis: Encounter for surveillance of contraceptive pills[ICD10: Z30.41] Diagnosis: Gastro-esophageal reflux disease without esophagitis[ICD10: K21.9] Janell Zepeda MD, [facility] CPT-4: 88770 05/17/2017 29513 EST. PATIENT, LEVEL III Diagnosis: Other specified disorders of thyroid[ICD10: E07.89] Diagnosis: Abnormal findings on diagnostic imaging of other specified body structures[ICD10: R93.8] Janell Zepeda MD, [facility] CPT-4: 97736 02/21/2017 05180 EST. PATIENT, LEVEL III Diagnosis: Other obesity due to excess calories[ICD10: E66.09] Diagnosis: Other dorsalgia[ICD10: M54.89] [facility] CPT-4 : 32057 11/21/2016 30839 EST. PATIENT, LEVEL III Diagnosis: Other obesity due to excess calories[ICD10: E66.09] Janell Zepeda MD, [facility] CPT-4: 17046 10/24/2016 ([id number]) OFFICE VISIT, NEW - LEVEL 3 Diagnosis: Acute laryngopharyngitis[ICD10: J06.0] Diagnosis: Irregular menstruation, unspecified[ICD10: N92.6] Diagnosis: Hirsutism[ICD10: L68.0] Diagnosis: Other obesity due to excess calories[ICD10: E66.09] Thalia Zepeda MD, [facility] CPT-4: 73075 09/12/2016 Plan of Care Planned Activity Notes Codes Status Date Visit Plan: Obesity - chronic issue with this patient. The pt has been counseled about diet changes, calorie restriction, and need to exercise. Pt will RTC in one month for weight check. Thyroid nodule - tender - will order repeat US to monitor 01/15/2018 [facility] [phone] [facility] [place] ([facility] min[facility] Complex 01/15/2018 Patient Education: Patient Medication Summary Completed 01/15/2018 Care Plan: Tsh Cancelled 01/15/2018 Care Plan: Free T4 Cancelled 01/15/2018 Care Plan: BMI Above normal followup SELF-MGMT EDUC & TRAIN 1 PT Pending 2017 Visit Plan: Obesity - chronic issue with this patient. The pt has been counseled about diet changes, calorie restriction, and need to exercise. Pt will RTC in one month for weight check. Well Adult - pt was counseled about diet, exercise, and encouraged to follow a heart healthy diet and increase activity level. The patient was instructed to RTC yearly for well adult exams and PRN for acute illnesses. The pt was also instructed to have yearly labs for check of cholesterol, thyroid, chem panel, CBC, and renal functioning. 11/15/2017 Appointment: [facility] [phone] [facility] [place] (15 min) Moderate 11/15/2017 Patient Education: Patient Medication Summary Completed 11/15/2017 Patient Education: Obesity Completed 11/15/2017 Appointment: Nurse Visit 11/01/2017 Patient Education: Patient Medication Summary Completed 11/01/2017 Patient Education: Obesity Completed 11/01/2017 Appointment: Nurse Visit 09/25/2017 Patient Education: Patient Medication Summary Completed 09/25/2017 Appointment: Nurse Visit 07/26/2017 Patient Education: Patient Medication Summary Completed 07/26/2017 Visit Plan: Obesity - chronic issue with this patient. The pt has been counseled about diet changes, calorie restriction, and need to exercise. Pt will RTC in one month for weight check. Esophageal Reflux - the patient has been counseled against excessive intake of caffeine, spicy foods, peppermint, and cinnamon - all of which can exacerbate esophageal reflux. The patient is to take medications as prescribed and call the office if the symptoms are not improving. 06/14/2017 Appointment: Janell Pathak WPtel: [facility] (15 min) Moderate 06/14/2017 Patient Education: Patient Medication Summary Completed 06/14/2017 Patient Education: Obesity Completed 06/14/2017 Visit Plan: Esophageal Reflux - the patient has been counseled against excessive intake of caffeine, spicy foods, peppermint, and cinnamon - all of which can exacerbate esophageal reflux. The patient is to take medications as prescribed and call the office if the symptoms are not improving. Obesity - chronic issue with this patient. The pt has been counseled about diet changes, calorie restriction, and need to exercise. Pt will RTC in one month for weight check. Low back pain- the patient was instructed in appropriate posture, need for weight loss to alleviate abdominal obesity that is worsening the patient's back pain.. The pt is to use prn antiinflammatories to manage acute pain. The patient is to call the office if the pain is worsening or does not improve. control - will send RX - pt is to notify clinic with any changes, questions, or concern. 05/17/2017 Appointment: Janell Pathak WPtel: [address] [place], [place] [id number] (30 min) Complex 05/17/2017 Patient Education: Patient Medication Summary Completed 05/17/2017 Patient Education: Obesity Completed 05/17/2017 Referral: Sami Mena Consultation appointment 02/22/17 at 3PM - pt notified at her appointment on 02/21 Appointment Confirmed 02/22/2017 Visit Plan: Thyroid nodule/cysts - will refer to for biopsy per pt request - pt denies dysphagia, or voice change - pt is to notify clinic of plan/procedure after her appointment with Dr. Mena on 02/22/17 at 3 PM 02/21/2017 Appointment: Janell Pathak WPtel: [facility] (30 min) Complex 02/21/2017 Patient Education: Patient Medication Summary Completed 02/21/2017 Care Plan: Referral Order SNOMED-CT : [id number] Pending 02/21/2017 Referral: [place] [facility] WPtel: [address] [id number] Referral Initiated 11/30/2016 Visit Plan: Obesity - chronic issue with this patient. The pt has been counseled about diet changes, calorie restriction, and need to exercise. Pt will RTC in one month for weight check. Back pain - pt states that she had an x-ray showing scoliosis - pt states that she would like to get another opinion on her options to relieve her back pain. Will have pt sign a release of information to get x-ray report - will refer to ortho. 11/21/2016 Appointment: Janell Pathak WPtel: [address] [place], [place] [id number] (30 min) Complex 11/21/2016 Patient Education: Patient Medication Summary Completed 11/21/2016 Patient Education: Obesity Completed 11/21/2016 Care Plan: BMI Above normal followup SELF-MGMT EDUC & TRAIN 1 PT Pending 2016 Care Plan: Referral Order SNOMED-CT : [id number] Pending 11/21/2016 Appointment: Thalia Vidal WPtel: [phone] [place] (15 min) Moderate 10/26/2016 Care Plan: BMI Above normal followup SELF-MGMT EDUC & TRAIN 1 PT Pending 2016 Visit Plan: Obesity - chronic issue with this patient. The pt has been counseled about diet changes, calorie restriction, and need to exercise. Pt will RTC in one month for weight check. 10/24/2016 Appointment: Janell Pathak WPtel: [facility] (30 min) Complex 10/24/2016 Patient Education: Patient Medication Summary Completed 10/24/2016 Patient Education: Obesity Completed 10/24/2016 Visit Plan: Pharyngitis-Discussed natural and expected course of this diagnosis and need to alert me if symptoms do not follow expected course, or if any worse. Recommended salt water gargles as needed for pain. Tylenol/motrin as needed for fever/discomfort. Irregular periods-hirsutism -check labs-recommend patient follow up with operational assistant for possible PCOS Obesity- check labs-cut back on fast food-follow up in 1 month 09/12/2016 Appointment: VidalThalia WPtel: [phone] New Patient 09/12/2016 Patient Education: Patient Medication Summary Completed 09/12/2016 Patient Education: Obesity Completed 09/12/2016 Care Plan: [facility] Pending 09/12/2016 Care Plan: BMI Above normal followup SELF-MGMT EDUC & TRAIN 1 PT Pending 2016 Referral: [place] [facility] WPtel: [address] [id number] Referral Completed Referral: Sami Mena Referral Initiated Instructions Comment . Obesity - chronic issue with this patient. The pt has been counseled about diet changes, calorie restriction, and need to exercise. Pt will RTC in one month for weight check. Esophageal Reflux - the patient has been counseled against excessive intake of caffeine, spicy foods, peppermint, and cinnamon - all of which can exacerbate esophageal reflux. The patient is to take medications as prescribed and call the office if the symptoms are not improving. . Thyroid nodule/cysts - will refer to for biopsy per pt request - pt denies dysphagia, or voice change - pt is to notify clinic of plan/ procedure after her appointment with Dr. Mena on 02/22/17 at 3 PM . Obesity - chronic issue with this patient. The pt has been counseled about diet changes, calorie restriction, and need to exercise. Pt will RTC in one month for weight check. Well Adult - pt was counseled about diet, exercise, and encouraged to follow a heart healthy diet and increase activity level. The patient was instructed to RTC yearly for well adult exams and PRN for acute illnesses. The pt was also instructed to have yearly labs for check of cholesterol, thyroid, chem panel, CBC, and renal functioning. . Obesity - chronic issue with this patient. The pt has been counseled about diet changes, calorie restriction, and need to exercise. Pt will RTC in one month for weight check. Thyroid nodule - tender - will order repeat US to monitor . Obesity - chronic issue with this patient. The pt has been counseled about diet changes, calorie restriction, and need to exercise. Pt will RTC in one month for weight check. Back pain - pt states that she had an x-ray showing scoliosis - pt states that she would like to get another opinion on her options to relieve her back pain. Will have pt sign a release of information to get x-ray report - will refer to ortho. . Esophageal Reflux - the patient has been counseled against excessive intake of caffeine, spicy foods, peppermint, and cinnamon - all of which can exacerbate esophageal reflux. The patient is to take medications as prescribed and call the office if the symptoms are not improving. Obesity - chronic issue with this patient. The pt has been counseled about diet changes, calorie restriction, and need to exercise. Pt will RTC in one month for weight check. Low back pain- the patient was instructed in appropriate posture, need for weight loss to alleviate abdominal obesity that is worsening the patient's back pain.. The pt is to use prn antiinflammatories to manage acute pain. The patient is to call the office if the pain is worsening or does not improve. control - will send RX - pt is to notify clinic with any changes, questions, or concern. recommend pelvic ultrasound -discuss with [employer] check labs zpack zyrtec or loc daily . Pharyngitis-Discussed natural and expected course of this diagnosis and need to alert me if symptoms do not follow expected course, or if any worse. Recommended salt water gargles as needed for pain. Tylenol/motrin as needed for fever/discomfort. Irregular rleeszy-cvojzgkzp-oyflf labs-recommend patient follow up with operational assistant for possible PCOS Obesity-check labs-cut back on fast food-follow up in 1 month . Obesity - chronic issue with this patient. The pt has been counseled about diet changes, calorie restriction, and need to exercise. Pt will RTC in one month for weight check.
--- OUTSIDE RECORDS SUMMARY | 2018-04-19 09:01 | XMS REPORT | CCD ---
Author Author [facility] Address [address] [place] [address] Phone Care Team Providers Care Photography Spotter Name Role Phone PP Unavailable CCM Unavailable Summary Purpose Interface Exchange Insurance Providers Payer name Policy type / Coverage type Covered green party ID Effective Begin Date Effective End Date Blue Cross Blue [facility] Blue Cross/Blue Shield [id number] Unknown Unknown Family history Grandmother Diagnosis Age [...] 09/12/2016 Employment Unknown Currently employed RT at [employer] 09/12/[address]: 908270972 Never smoker 09/12/[address]: 676265 Currently drinks alcohol 1 drink a week 09/12/2016 Frequency of drinks SNOMED CT: 257172143 1-4 drinks per week 09/12/2016 Has the patient ever used illegal drugs? Unknown Has never used illegal drugs 09/12/2016 Allergies, Adverse Reactions, Alerts Substance Reaction Codes Entered Date Inactivated Date Status amoxicillin emesis RxNorm: 723 09/12/2016 No Inactive Date Active Past Medical History Illness Codes Condition Status Onset Date Resolved Date Other obesity due to excess calories ICD-9: 278.00 ICD-10: E66.09 Active 09/12/2016 Unknown Encounter for surveillance of contraceptive pills ICD-9: V25.41 ICD-10: Z30.41 Active 05/17/2017 Unknown Gastro-esophageal reflux disease without esophagitis ICD-9: 530.81 ICD-10: K21.9 Active 05/17/2017 Unknown Other dorsalgia ICD-9 : 724.5 ICD-10: M54.89 Active 11/21/2016 Unknown Abnormal findings on diagnostic imaging of other specified body structures ICD-9: 794.5 ICD-10: R93.8 Active 02/21/2017 Unknown Other specified disorders of thyroid ICD-9: 246.8 ICD-10: E07.89 Active 02/21/2017 Unknown Acute laryngopharyngitis ICD-9: 465.0 ICD-10: J06.0 Active 09/12/2016 Unknown Hirsutism ICD-9: 704.1 ICD-10: L68.0 Active 09/12/2016 Unknown Irregular menstruation, unspecified ICD-9: 626.2 ICD-10: N92.6 Active 09/12/2016 Unknown Problems Condition Codes Effective Dates Condition Status Other obesity due to excess calories ICD-9: 278.00 ICD-10: E66.09 09/12/2016 Active Encounter for surveillance of contraceptive pills ICD-9: V25.41 ICD-10: Z30.41 05/17/2017 Active Gastro-esophageal reflux disease without esophagitis ICD-9: 530.81 ICD-10: K21.9 05/17/2017 Active Other dorsalgia ICD-9 : 724.5 ICD-10: M54.89 11/21/2016 Active Abnormal findings on diagnostic imaging of other specified body structures ICD-9: 794.5 ICD-10: R93.8 02/21/2017 Active Other specified disorders of thyroid ICD-9: 246.8 ICD-10: E07.89 02/21/2017 Active Acute laryngopharyngitis ICD-9: 465.0 ICD-10: J06.0 09/12/2016 Active Hirsutism ICD-9: 704.1 ICD-10: L68.0 09/12/2016 Active Irregular menstruation, unspecified ICD-9: 626.2 ICD-10: N92.6 09/12/2016 Active Medications Medication Codes Instructions Start Date Stop Date Status Fill Instructions phentermine 37.5 mg tablet RxNorm: 188763 1 Tablet(s) PO daily 07/26/2017 08/24/2017 Active Lo Loestrin Fe 1 mg-10 mcg (24)/10 mcg (2) tablet RxNorm: 8209623 1 Tablet(s) PO UD 06/14/2017 03/10/2018 Active omeprazole 20 mg capsule,delayed release RxNorm: 406262 1 Capsule(s) PO daily 06/14/2017 03/10/2018 Active Lyrica 50 mg capsule RxNorm: 923907 1 Capsule(s) PO daily 06/1409/11/2017 Active phentermine 37.5 mg tablet RxNorm: 534226 1 Tablet(s) PO daily 06/14/2017 07/13/2017 Inactive Lo Loestrin Fe 1 mg-10 mcg (24)/10 mcg (2) tablet RxNorm: 7868467 1 Tablet(s) PO UD 05/17/2017 06/13/2017 Inactive phentermine 37.5 mg tablet RxNorm: 138719 1 Tablet(s) PO daily 05/17/2017 06/13/2017 Inactive Lyrica 50 mg capsule RxNorm: 930383 1 Capsule(s) PO daily 05/1706/13/2017 Inactive omeprazole 20 mg capsule,delayed release RxNorm: 558435 1 Capsule(s) PO daily 05/17/2017 06/13/2017 Inactive Contrave 8 mg-90 mg tablet,extended release RxNorm: 3487148 1 Tablet(s) PO QD x 1 week, then BID x 1 week, then 2 pills QAM & 1 pill QPM x 1 week, then 2 pills BID 10/24/2016 05/27/2017 Inactive Lutera (28) 0.1 mg-20 mcg tablet RxNorm: 811925 1 Tablet(s) PO daily 09/12/2016 10/09/2016 Inactive Zithromax Z-Brennan 250 mg tablet RxNorm: 003603 1 Tablet(s) PO daily 09/12/2016 09/16/2016 Inactive zpack Medication Administered No Medication Administered data Immunizations No Immunization data Assessments Condition Codes Effective Dates Other obesity due to excess calories ICD-10: E66.09 ICD-9: 278.00 07/26/2017 Gastro-esophageal reflux disease without esophagitis ICD-10 : K21.9 ICD-9: 530.81 06/14/2017 Encounter for surveillance of contraceptive pills ICD-10: Z30.41 ICD-9: V25.41 06/14/2017 Other dorsalgia ICD-10: M54.89 ICD-9: 724.5 05/17/2017 Other specified disorders of thyroid ICD-10: E07.89 ICD-9: 246.8 02/21/2017 Abnormal findings on diagnostic imaging of other specified body structures ICD-10: R93.8 ICD-9: 794.5 02/21/2017 Irregular menstruation, unspecified ICD-10: N92.6 ICD-9: 626.2 09/12/2016 Acute laryngopharyngitis ICD-10: J06.0 ICD-9: 465.0 09/12/2016 Hirsutism ICD-10: L68.0 ICD-9: 704.1 09/12/2016 Reason For Visit Reason For Visit Effective Dates Notes weight gain/obesity 06/14/2017 medication follow up 05/17/2017 thyroid nodule 02/21/2017 medication follow up 11/21/2016 weight gain/obesity 10/24/2016 weight gain/obesity 09/12/2016 Results Observation Observation Code Item Item Code Result Date Prolactin 010687 PROLACTIN 17.0 ng/mL 09/20/2016 Lipid Ord30 CHOL 198 mg/dL 09/20/2016 Lipid Ord30 HDL 41.0 mg/dl 09/20/2016 Lipid Ord30 TRIG 96 mg/dL 09/20/2016 Lipid Ord30 LDL 138 mg/dL 09/20/2016 Lipid Ord30 C/HDL 4.8 Ratio 09/20/2016 Comp Metabolic Myy165 NA 137 mEq/L 09/20/2016 Comp Metabolic Ttu768 K 4.4 mEq/L 09/20/2016 Comp Metabolic Sgn175 CL 104 mEq/L 09/20/2016 Comp Metabolic Ipg116 CO2 23.0 mEq/L 09/20/2016 Comp Metabolic Kpe025 ANION GAP 14 09/20/2016 Comp Metabolic Okd534 GLUCOSE 89 mg/dL 09/20/2016 Comp Metabolic Hwn215 Creat 0.8 mg/dL 09/20/2016 Comp Metabolic Aza405 eGFR 89 ml/min/1.73m2 09/20/2016 Comp Metabolic Uvc379 BUN 14 mg/dL 09/20/2016 Comp Metabolic Zuw914 B/C Ratio 17.1 Ratio 09/20/2016 Comp Metabolic Ljn498 CALCIUM 9.4 mg/dL 09/20/2016 Comp Metabolic Nkv551 ALK PHOS 47 U/L 09/20/2016 Comp Metabolic Sao427 AST(SGOT) 18 U/L 09/20/2016 Comp Metabolic Ezw470 ALT(SGPT) 21 U/L 09/20/2016 Comp Metabolic Bcl331 BILI T 0.5 mg/dL 09/20/2016 Comp Metabolic Tmd324 ALBUMIN 4.2 g/dL 09/20/2016 Comp Metabolic Unl877 TPRO 7.0 g/dL 09/20/2016 Comp Metabolic Onl690 GLOB 2.8 g/dL 09/20/2016 Comp Metabolic Fnv623 A/G Ratio 1.5 Ratio 09/20/2016 Comp Metabolic Lau390 Osmo 274 mOsmo 09/20/2016 Fsh Ord18 FSH 5.67 mlU/ml 09/20/2016 Lh Ord19 LH 7.49 mIU/mL 09/20/2016 Progesterone Dww127 Prog 0.73 ng/mL 09/19/2016 Cbc With Differential [...] 91.5 fl 09/19/2016 Cbc With Differential Ord2 Cole% 9.4 % 09/19/2016 Cbc With Differential Ord2 MCH 31.2 pg 09/19/2016 Cbc With Differential Ord2 MCHC 34.1 pg 09/19/2016 Cbc With Differential Ord2 Eos% 1.1 % 09/19/2016 Cbc With Differential Ord2 Baso% 0.3 % 09/19/2016 Cbc With Differential Ord2 PLT 333 K/ul 09/19/2016 Cbc With Differential Ord2 Neut ABS# 2.70 K/ul 09/19/2016 Cbc With Differential Ord2 RDW 12.6 % 09/19/2016 Cbc With Differential Ord2 Lymph ABS# 2.80 K/ul 09/19/2016 Cbc With Differential Ord2 Cole ABS# 0.6 K/ul 09/19/2016 Cbc With Differential Ord2 Eos ABS# 0.1 K/ul 09/19/2016 Cbc With Differential Ord2 Baso ABS# 0.0 K/ul 09/19/2016 Tsh Ord6 hTSH II 0.92 uIU/mL 09/19/2016 Review of Systems System Result Effective Dates Constitutional No recent illness 2016 Constitutional No [...] No Procedures data Vital Signs Date Vital 07/26/2017 Blood Pressure 1: 116/78 Code : 8480-6 Heart Rate 1: 99 bpm SpO2: 98% Weight: 208 lbs 06/14/2017 Blood Pressure 1: 110/68 Code : 8480-6 Heart Rate 1: 90 bpm SpO2: 97% Weight: 217 lbs 05/17/2017 Blood Pressure 1: 128/72 Code : 8480-6 BMI: 38.4 Code : 07248-6 Heart Rate 1 : 78 bpm Height: 5'4" SpO2: 98% Weight: 224 lbs 02/21/2017 Blood Pressure 1: 126/74 Code : 8480-6 BMI: 38.3 Code : 91497-2 Heart Rate 1 : 99 bpm Height: 5'4" SpO2: 97% Weight: 223 lbs 11/21/2016 Blood Pressure 1: 110/64 Code : 8480-6 BMI: 39.0 Code : 35920-7 Heart Rate 1 : 85 bpm Height: 5'4" SpO2: 98% Weight: 227 lbs 10/24/2016 Blood Pressure 1: 114/72 Code : 8480-6 BMI: 39.1 Code : 32431-0 Heart Rate 1 : 78 bpm Height: 5'4" SpO2: 98% Weight: 228 lbs 09/12/2016 Blood Pressure 1: 132/78 Code : 8480-6 BMI: 39.3 Code : 93286-5 Heart Rate 1 : 90 bpm Height: 5'4" SpO2: 98% Weight: 229 lbs Functional Status No Functional Status data History of Present Illness Symptom Name Status Result Effective Date Notes weight gain/obesity Location globally 06/14/2017 None weight [...] data Encounters Encounter Performer Location Codes Date (60372) Miscellaneous no charge Diagnosis: Other obesity due to excess calories[ICD10: E66.09] [facility] CPT-4: 62140 07/26/2017 16001 EST. PATIENT, LEVEL IV Diagnosis: Other obesity due to excess calories[ICD10: E66.09] Diagnosis: Encounter for surveillance of contraceptive pills[ICD10: Z30.41] Diagnosis: Gastro-esophageal reflux disease without esophagitis[ICD10: K21.9] Janell Zepeda MD, [facility] CPT-4: 72310 06/14/2017 50602 EST. PATIENT, LEVEL IV Diagnosis: Other obesity due to excess calories[ICD10: E66.09] Diagnosis: Other dorsalgia[ICD10: M54.89] Diagnosis: Encounter for surveillance of contraceptive pills[ICD10: Z30.41] Diagnosis: Gastro-esophageal reflux disease without esophagitis[ICD10: K21.9] Janell Zepeda MD, [facility] CPT-4: 87105 05/17/2017 09796 EST. PATIENT, LEVEL III Diagnosis: Other specified disorders of thyroid[ICD10: E07.89] Diagnosis: Abnormal findings on diagnostic imaging of other specified body structures[ICD10: R93.8] Janell Zepeda MD, [facility] CPT-4: 27426 02/21/2017 28142 EST. PATIENT, LEVEL III Diagnosis: Other obesity due to excess calories[ICD10: E66.09] Diagnosis: Other dorsalgia[ICD10: M54.89] Janell Zepeda MD, [facility] CPT-4 : 60354 11/21/2016 31509 EST. PATIENT, LEVEL III Diagnosis: Other obesity due to excess calories[ICD10: E66.09] Janell Zepeda MD, [facility] CPT-4: 40564 10/24/2016 (48119) OFFICE VISIT, NEW - LEVEL 3 Diagnosis: Acute laryngopharyngitis[ICD10: J06.0] Diagnosis: Irregular menstruation, unspecified[ICD10: N92.6] Diagnosis: Hirsutism[ICD10: L68.0] Diagnosis: Other obesity due to excess calories[ICD10: E66.09] Thalia Zepeda MD, [facility] CPT-4: 45737 09/12/2016 Plan of Care Planned Activity Notes Codes Status Date Patient Education: Patient Medication Summary Completed 07/26/2017 [phone] [facility] [place] (15 min) Moderate 06/14/2017 Patient Education: Patient Medication Summary Completed 06/14/2017 Patient Education: Obesity Completed 06/14/2017 Appointment: [facility] [phone] [facility] [place] (30 min) Complex 05/17/2017 Patient Education: Patient Medication Summary Completed 05/17/2017 Patient Education: Obesity Completed 05/17/2017 Referral: Sami Mena Consultation appointment 02/22/17 at 3PM - pt notified at her appointment on 02/21 Appointment Confirmed 02/22/2017 Appointment: Janell Pathak WPtel: [phone] [facility] [place] (30 min) Complex 02/21/2017 Patient Education: Patient Medication Summary Completed 02/21/2017 Care Plan: Referral Order SNOMED-CT : 223485780 Pending 02/21/2017 Referral: [facility], [facility] WPtel: [phone] [id number] Referral Initiated 11/30/2016 Appointment: [facility] [phone] [facility] [place] (30 min) Complex 11/21/2016 Patient Education: Patient Medication Summary Completed 11/21/2016 Patient Education: Obesity Completed 11/21/2016 Care Plan: BMI Above normal followup SELF-MGMT EDUC & TRAIN 1 PT Pending 2016 Care Plan: Referral Order SNOMED-CT : 824481328 Pending 11/21/2016 [facility]: [facility] [phone] [facility] [place] (15 min) Moderate 10/26/2016 Care Plan: BMI Above normal followup SELF-MGMT EDUC & TRAIN 1 PT Pending 2016 App[facility]ment: [facility] [phone] [facility] [place] (30 min) Complex 10/24/2016 Patient Education: Patient Medication Summary Completed 10/24/2016 Patient Education: Obesity Completed 10/24/2016 Appointment: Thalia Vidal WPtel: [phone] [id number] New Patient 09/12/2016 Patient Education: Patient Medication Summary Completed 09/12/2016 Patient Education: Obesity Completed 09/12/2016 Care Plan: [facility] Pending 09/12/2016 Care Plan: BMI Above normal followup SELF-MGMT EDUC & TRAIN 1 PT Pending 2016 Referral: [facility], [facility] W[facility]el: [phone] [id number] Referral Completed Referral: Sami Mena Referral Initiated Instructions No Instructions
[2018-04-19] MEDS ORDERED: ceFAZolin 2 GM IV Premixed 50 ML IV ONE (09:15)
[2018-04-19] MEDS: LACTATED RINGERS 1,000 ML IV PRN ×2 (09:25→11:54)
[2018-04-19] MEDS ORDERED: MIDAZOLAM 2 MG/2 ML (VERSED) VIAL ONE ×2 (09:40→10:34)
[2018-04-19] MEDS ORDERED: MIDAZOLAM 2 MG/2 ML (VERSED) VIAL IVP ONE (09:45)
[2018-04-19] MEDS ORDERED: BUP/EPI 0.5% 1:200,000 (SENSORCAINE) 30 ML VIAL ONE (10:26)
[2018-04-19] MEDS ORDERED: THROMBIN SPRAY KIT 5,000 UNIT VIAL ONE (10:26)
--- NOTE | 2018-04-19 10:27 | Progress Note-Pre Operative ---
Pre-Operative Progress Note H&P Reviewed The H&P was reviewed, patient examined and no changes noted. Date Seen by Provider: Apr 01, 2018 Time Seen by Provider: 16:00 Date H&P Reviewed: Apr 19, 2018 Time H&P Reviewed: 10:27 Pre-Operative Diagnosis: bilateral thyroid nodules FLORENCE HAGEN MD Apr 19, 2018 10:27
[2018-04-19] MEDS ORDERED: DEXAMETHASONE 10 MG/ML (DECADRON) 1 ML VIAL ONE (10:34)
[2018-04-19] MEDS ORDERED: ONDANSETRON 4 MG/2 ML (SDV) Z0FRAN ONE (10:34)
[2018-04-19] MEDS ORDERED: LIDOCAINE PF 2% 5 ML (XYLOCAINE) VIAL ONE (10:34)
[2018-04-19] MEDS ORDERED: SUCCINYLCHOLINE INJ 100 MG/5 ML SYR ONE (10:34)
[2018-04-19] MEDS ORDERED: proPOfol 200 MG/20 ML (DIPRIVAN) VIAL IV ONE (10:34)
[2018-04-19] MEDS ORDERED: fentaNYL INJECTION 100 MCG/2 ML AMP ONE ×3 (10:34→14:11)
[2018-04-19] MEDS ORDERED: SEVOFLURANE (ULTANE) 15 ML INHAL SOLN ONE (10:34)
[2018-04-19] MEDS ORDERED: ESMOLOL 100 MG/10 ML (BREVIBLOC) VIAL ONE (11:25)
--- NOTE | 2018-04-19 12:39 | Operative Report ---
Operative Report Date of Procedure/Surgery Apr 19, 2018 Surgeon (s) FLORENCE HAGEN MD Fat Purification Worker (s): N/A Post-Operative Diagnosis same Procedure Performed total thyroidectomy Intraoperative nerve monitoring Description of Procedure Anesthesia Type: General Estimated blood loss (mL): minimal Specimen(s) collected/removed both lobes of thyroid Description of the Procedure Indication for the procedure: This lady presented with bilateral thyroid nodules , that had increased in size over the last 2 years. Despite negative cytology, due to the enlargement and the associated pressure symptoms, it was felt reasonable to proceed with total thyroidectomy to establish a definitive diagnosis. Informed consent was obtained after reviewing the operative details and complications of hematoma, transient hoarseness of voice and hypocalcemia. Description of the procedure: She was placed supine on the operating table and general anesthesia induced. 2 g of Ancef were administered intravenously as prophylaxis against wound infection. Sequential compression devices were placed around her legs to minimize the risk of venous thrombosis. Her neck and upper chest were prepared and draped in the usual sterile manner. Pre-emptive analgesia was established using 0.5 percent Marcaine with epinephrine. A 3.5 cm transverse incision was made along the skin crease of the neck and platysma incised transversely. Flaps were raised superiorly to the level of the thyroid cartilage and inferiorly to the sternal notch. Cervical fascia was incised vertically and the strap muscles were retracted laterally. I began the dissection on the left side. Thyroid lobe was retracted medially, displaying a distinct middle thyroid vein. It was controlled between ligaclips. Superior thyroid artery was controlled between 0 silk sutures, reinforced with a Ligaclip. Recurrent laryngeal nerve was identified in its conventional position and protected by constant visual inspection and intermittent nerve stimulation technique. Both parathyroids were identified and preserved, along with their blood supply. A similar dissection was performed on the right side. The recurrent laryngeal nerve and both parathyroid glands were preserved, along with their blood supply. We had the anesthesiologist conduct Valsalva maneuver, looking for any venous bleeding. There wasn't any. Gelfoam soaked in thrombin solution was placed along the tracheo-esophageal groove, to optimize hemostasis. Neck was then flexed in preparation for closure. Cervical fascia was approximated using 3-0 Vicryl and platysma using the same material. Skin was closed using 4-0 Vicryl, in a subcuticular fashion. She tolerated the procedure well, was extubated in the operating room and taken to the recovery room in a stable condition. Findings of the Procedure see op report Allergies and Home Medications Allergies Coded Allergies: Sulfa (Sulfonamide Antibiotics) (Verified Allergy, Unknown, swelling, ) amoxicillin (Verified Allergy, Unknown, NAUSEA, 04/15/18) Home Medications Cholecalciferol (Vitamin D3) 2,000 Unit Tablet, 2,000 UNIT PO DAILY, (Reported) Norgestrel-Ethinyl Estradiol 1 Each Tablet, 1 EACH PO DAILY, (Reported) Omeprazole 20 Mg Capsule.dr, 20 MG PO DAILY, (Reported) Pregabalin 50 Mg Capsule, 50 MG PO DAILY, (Reported) [calcium] 1,000 mg TAB, 2,000 MG PO DAILY, (Reported) take 2 (1000mg) tabs Patient Home Medication List Home Medication List Reviewed: Yes FLORENCE HAGEN MD Apr 19, 2018 12:39
[2018-04-19] MEDS ORDERED: ACHD5005 PO (12:42)
[2018-04-19] MEDS ORDERED: LEVO112T55 PO (12:43)
[2018-04-19] MEDS ORDERED: ONDANSETRON 4 MG/2 ML (SDV) Z0FRAN IVP PRN ×2 (12:45→13:00)
--- NOTE | 2018-04-19 12:45 | Discharge Inst-Simple/Standard ---
Discharge Inst-Standard Discharge Medications New, Converted or Re-Newed RX: RX on Chart Patient Instructions/Follow Up Plan of Care/Instructions/FU: dressings off in a.m. incentive spirometry. Follow-up in 3 weeks. Activity as Tolerated: Yes Discharge Diet: No Restrictions FLORENCE HAGEN MD Apr 19, 2018 12:45
[2018-04-19] MEDS ORDERED: HYDROmorphone 2 MG/ML VIAL (DILAUDID) IV ONE (13:00)
[2018-04-19] MEDS ORDERED: morphine INJ 10 MG/ML 1ML (SYR OR VIAL) IVP ONE (13:00)
[2018-04-19] MEDS ORDERED: morphine INJ 10 MG/ML 1ML (SYR OR VIAL) ONE (13:09)
[2018-04-19 13:45] VITALS: BP 125/80
--- NOTE | 2018-04-19 14:08 | Anesthesia-General Post-Op ---
General Patient Condition Mental Status/LOC: Same as Preop Cardiovascular: Satisfactory Nausea/Vomiting: Absent Respiratory: Satisfactory Pain: Controlled Complications: Absent Post Op Complications Complications None Follow Up Care/Instructions Patient Instructions None needed. Anesthesia/Patient Condition Patient Condition Patient is doing well, no complaints, stable vital signs, no apparent adverse anesthesia problems. No complications reported per nursing. IPPE LESLIE CRNA Apr 19, 2018 14:08
[2018-04-19] MEDS: fentaNYL INJECTION 100 MCG/2 ML AMP IVP PRN ×3 (14:13→19:16)
[2018-04-19] MEDS: LACTATED RINGERS 1,000 ML IV SCH (15:11)
[2018-04-19 16:51] VITALS: BP 116/76
[2018-04-19] MEDS: HYDROcodone/APAP 5 MG/325 MG (LORTAB) TAB PO PRN ×2 (18:00→21:29)
[2018-04-19 19:55] VITALS: BP 117/69
[2018-04-20] VITALS: BP 107/67
[2018-04-20] MEDS: fentaNYL INJECTION 100 MCG/2 ML AMP IVP PRN ×4 (00:49→07:50)
[2018-04-20] MEDS: LACTATED RINGERS 1,000 ML IV SCH (00:49)
[2018-04-20 04:00] VITALS: BP 122/86
[2018-04-20] MEDS ORDERED: LEVOTHYROXINE 112 MCG (LEVOTHROID) TAB PO NR (06:00)
[2018-04-20 06:37] LABS: BUN/CREATININE RATIO 14; CALCIUM 9.2 MG/DL (8.5-10.1); CARBON DIOXIDE 23 MMOL/L (21-32); CHLORIDE 106 MMOL/L (98-107); CREATININE SERUM 0.78 MG/DL (0.60-1.30); GFR ESTIMATED > 60; GLUCOSE 111 MG/DL (70-105); POTASSIUM 4.3 MMOL/L (3.6-5.0); SODIUM 138 MMOL/L (135-145)
[2018-04-20 08:00] VITALS: BP 133/83
[2018-04-20] MEDS: HYDROcodone/APAP 5 MG/325 MG (LORTAB) TAB PO PRN (08:06)
[2018-04-20] MEDS ORDERED: CATHETER FLUSH 10 ML SYR IV PRN (09:15)
[2018-04-20 12:00] VITALS: BP 133/83
--- NOTE | 2018-04-20 12:12 | Progress Note-Standard ---
Standard Progress Note Progress Notes/Assess & Plan Date Seen by a Provider: Apr 20, 2018 Time Seen by a Provider: 11:00 Progress/Assessment & Plan doing well. Calcium normal. Incision dry. Vocal cord function normal. Could be discharged home Final Diagnosis multinodal goiter FLORENCE HAGEN MD Apr 20, 2018 12:12
[2018-04-20] MEDS ORDERED: CATHETER FLUSH 10 ML SYR IV SCH (14:00)
== END 2018-04-20 12:05 | disposition home or self-care (01) ==
LOC: SDC 08:56 → 4TH 13:45 → SDC 04-20 12:05
PROVIDERS: ATTEND Surgery
DX: E04.2 Nontoxic multinodular goiter (principal); K21.9 Gastro-esophageal reflux disease without esophagitis; Z79.899 Other long term (current) drug therapy
CPT/HCPCS: 36415; 80048; 84703; 87081

== ENCOUNTER → 2018-06-03 | Outpatient (CLI) | payer OTHER ==
[~2018-06-03] MED LIST changes: +ACHD5005 PO; +LEVO112T55 PO
[2018-06-03 02:54] LABS: FREE T4 (FREE THYROXINE) 1.1 NG/DL (0.70-1.48)
== END ==
LOC: LAB 02:00
PROVIDERS: ATTEND Surgery
DX: E89.0 Postprocedural hypothyroidism (principal)
CPT/HCPCS: 36415; 84439; 84443

== ENCOUNTER → 2018-10-08 | Outpatient (CLI) | payer OTHER ==
--- NOTE | 2018-10-08 10:15 | Diagnostic Imaging Report ---
PROCEDURE: MR imaging cervical spine without contrast. TECHNIQUE: Multiplanar, multisequence MR imaging of the cervical spine was performed without contrast. FINDINGS: There is straightening of the normal cervical lordosis. Vertebral body heights and disc spaces are maintained. There is right paramedian bulging of the C5-6 disc which indents the ventral thecal sac. There is no significant spinal stenosis. No neural foraminal stenosis is identified. There is no marrow signal abnormality to indicate a fracture. No abnormal signal is seen within the cervical spinal cord. IMPRESSION: Right paramedian bulging of the C5-6 disc without significant stenosis. Dictated by: Dictated on workstation # [id number]
--- NOTE | 2018-10-08 10:53 | Diagnostic Imaging Report ---
EXAMINATION: MRI thoracic spine without contrast. INDICATION: Back pain. TECHNIQUE: Multiple images utilizing both T1 and T2 weighted sequences were obtained. COMPARISON: There are no prior studies available for comparison. FINDINGS: The coronal localizer images do show a slight curvature of the midthoracic spine, convex to the left. The T2 parasagittal images show desiccation and slight narrowing of the discs at each space from T1-2 to T4-5. The thecal sac, however, is relatively generous. There is no sign of spinal stenosis or nerve root encroachment at any level. There is no abnormal signal arising from the cord or the vertebral bodies to indicate an acute abnormality. There is no sign of a paraspinal mass. IMPRESSION: 1. 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 2. There is no sign of an acute bony abnormality or of a cord lesion. Dictated by: Dictated on workstation # [id number]
== END ==
LOC: RAD 08:56
PROVIDERS: ATTEND Nurse Practitioner Family
DX: M51.34 Other intervertebral disc degeneration, thoracic region (principal); M50.222 Other cervical disc displacement at C5-C6 level
CPT/HCPCS: 72141; 72146